=== PATIENT | male | born 1955 | race Caucasian/White ===

== ENCOUNTER 2020-02-16 22:51 | Emergency (ER) | payer MEDICARE, MEDICAID ==
[~2020-02-16] VITALS: Ht 185.4 cm; Wt 104.3 kg
[2020-02-16 23:03] VITALS: BP 122/78
[2020-02-17] MEDS ORDERED: ACCU-CHEK COMFORT CURVE STRIP VI ONE (00:15)
[2020-02-17 01:19] LABS: Basophils # (auto) 0 10 ^3/uL (0-0.2); Basophils % (auto) 0.5 % (0.0-2.0); Eosinophils # (auto) 0.1 10 ^3/uL (0-0.8); Eosinophils % (auto) 0.7 % (0.0-7.0); Hematocrit 42.4 % (41.0-53.0); Hemoglobin 14.3 g/dL (13.5-17.5); Lymphocytes # (auto) 1.6 10 ^3/uL (0.4-5.4); Lymphocytes % (auto) 18.8 % (10.0-50.0); Mean Corpuscular Hemoglobin 31.1 pg (28.0-32.0); Mean Corpuscular Hgb Conc. 33.7 g/dL (32.0-36.0); Mean Corpuscular Volume 92.1 fL (80.0-100.0); Monocytes # (auto) 0.6 10 ^3/uL (0-1.3); Monocytes % (auto) 7.1 % (0.0-12.0); Neutrophils # (auto) 6.1 10 ^3/uL (1.6-8.6); Neutrophils % (auto) 72.9 % (37.0-80.0); Nucleated Red Blood Cells % 0.4 %; Platelet Count (auto) 196 10^3/uL (140-450); Red Cell Distribution Width 14.5 % (11.8-14.3); White Blood Cell 8.4 10^3/uL (4.4-10.8)
[2020-02-17 01:34] LABS: INR 1.05 (0.9-1.15); Partial Thromboplastin Time 23.6 sec (23.64-32.05)
[2020-02-17 01:35] LABS: Albumin 3.7 g/dL (3.4-5.0); Anion Gap 8 (5-15); Blood Urea Nitrogen 24 mg/dL (7-18); Calcium 9.5 mg/dL (8.5-10.1); Carbon Dioxide 27 mmol/L (21-32); Chloride 103 mmol/L (98-107); Glucose 138 mg/dL (74-106); Potassium 4.4 mmol/L (3.5-5.1); Sodium 138 mmol/L (136-145)
[2020-02-17 01:37] LABS: BUN/Creatinine Ratio 16.9; GFR African American 65 mL/min; GFR Non-African American 54 mL/min
[2020-02-17 01:42] LABS: Alanine Aminotransferase 52 U/L (16-61); Alkaline Phosphatase 59 U/L (45-117); Aspartate Aminotransferase 47 U/L (15-37); Bilirubin, Total 0.3 mg/dL (0.2-1.0); Total Protein 7.9 g/dL (6.4-8.2)
[2020-02-17] MEDS ORDERED: traMADol HCL 50 MG TAB PO ONE (01:45)
[2020-02-17 02:08] LABS: Urine Amorphous Crystal FEW /hpf (None Seen); Urine Bacteria FEW /hpf (None Seen); Urine Blood 3+ /uL (Negative); Urine Hyaline Cast FEW /lpf (0 - 2); Urine Mucus FEW (None Seen); Urine WBC 3 /hpf (0 - 3)
[2020-02-17 02:19] LABS: Alcohol, Urine < 3.0 mg/dL (0-5); Amphetamine Screen, Urine NEGATIVE (NEGATIVE); Barbiturate Scree,Urine NEGATIVE (NEGATIVE); Benzodiazephine Screen, Urine POSITIVE (NEGATIVE); Cannabinoid Screen, Urine NEGATIVE (NEGATIVE); Cocaine Screen, Urine NEGATIVE (NEGATIVE); Opiate Scree,Urine NEGATIVE (NEGATIVE); Phencyclidine Screen, Urine NEGATIVE (NEGATIVE)
== END 2020-02-17 03:01 | disposition home or self-care (01) ==
LOC: EDUNIT# 22:51 → EDBD 22:51 → ER 22:54
DX: R07.89 Other chest pain (principal); M48.061 Spinal stenosis, lumbar region without neurogenic claudication; N12 Tubulo-interstitial nephritis, not specified as acute or chronic; N20.0 Calculus of kidney; E11.9 Type 2 diabetes mellitus without complications; E78.5 Hyperlipidemia, unspecified; I10 Essential (primary) hypertension; Z90.49 Acquired absence of other specified parts of digestive tract; Z86.73 Personal history of transient ischemic attack (TIA), and cerebral infarction without residual deficits
CPT/HCPCS: 36415; 70450; 71046; 72131; 80053; 80307; 81001; 82962; 83880; 84443; 84484; 85025; 85610; 85730; 93005

== ENCOUNTER 2020-03-15 21:42 | Inpatient (IN) | payer OTHER, MEDICAID ==
[~2020-03-15] VITALS: Ht 188 cm; Wt 139.7 kg
[2020-03-15 22:52] LABS: Eosinophils # (auto) 0.2 10 ^3/uL (0-0.8); Monocytes # (auto) 0.5 10 ^3/uL (0-1.3); Monocytes % (auto) 7.6 % (0.0-12.0); Nucleated Red Blood Cells % 0.1 %; Platelet Count (auto) 194 10^3/uL (140-450); White Blood Cell 7.1 10^3/uL (4.4-10.8)
[2020-03-15 22:55] LABS: Basophils # (auto) 0 10 ^3/uL (0-0.2); Basophils % (auto) 0.5 % (0.0-2.0); Eosinophils % (auto) 2.4 % (0.0-7.0); Hematocrit 43.1 % (41.0-53.0); Hemoglobin 14.6 g/dL (13.5-17.5); Lymphocytes # (auto) 1.4 10 ^3/uL (0.4-5.4); Lymphocytes % (auto) 20.5 % (10.0-50.0); Mean Corpuscular Hgb Conc. 33.8 g/dL (32.0-36.0); Mean Corpuscular Volume 91.7 fL (80.0-100.0); Neutrophils # (auto) 4.9 10 ^3/uL (1.6-8.6); Red Cell Distribution Width 14.8 % (11.8-14.3)
[2020-03-15 23:03] LABS: Alanine Aminotransferase 65 U/L (16-61); Albumin 3.4 g/dL (3.4-5.0); Anion Gap 7 (5-15); Aspartate Aminotransferase 58 U/L (15-37); Blood Urea Nitrogen 27 mg/dL (7-18); Calcium 9.1 mg/dL (8.5-10.1); Carbon Dioxide 26 mmol/L (21-32); Chloride 107 mmol/L (98-107); GFR African American 61 mL/min; GFR Non-African American 50 mL/min; Glucose 171 mg/dL (74-106); Potassium 3.8 mmol/L (3.5-5.1); Sodium 140 mmol/L (136-145)
[2020-03-15 23:07] LABS: Lactic Acid w/Reflex 2.5 mmol/L (0.4-2.0)
[2020-03-15 23:08] LABS: Alkaline Phosphatase 63 U/L (45-117); Bilirubin, Total 0.4 mg/dL (0.2-1.0); Total Protein 7.5 g/dL (6.4-8.2)
[2020-03-15 23:26] LABS: INR 1.04 (0.9-1.15); Partial Thromboplastin Time 20.7 sec (23.64-32.05)
[2020-03-15] MEDS ORDERED: SODIUM CHLORIDE 0.9% 1,000 ML IV ONE (23:30)
[2020-03-16] MEDS ORDERED: SODIUM CHLORIDE 0.9% 1,000 ML IV ONE ×2 (00:15→05:15)
[2020-03-16] MEDS ORDERED: VANCOMYCIN 1GM/250ML 250 ML IV ONE (00:30)
[2020-03-16] MEDS ORDERED: levoFLOXacin 250MG 50 ML IV ONE (00:30)
[2020-03-16 02:43] LABS: Urine Bacteria NONE SEEN /hpf (None Seen); Urine Blood Negative /uL (Negative); Urine Mucus FEW (None Seen); Urine Specific Gravity 1.029 (1.001-1.035); Urine WBC 1 /hpf (0 - 3)
[2020-03-16 03:07] LABS: Amphetamine Screen, Urine NEGATIVE (NEGATIVE); Barbiturate Scree,Urine NEGATIVE (NEGATIVE); Benzodiazephine Screen, Urine NEGATIVE (NEGATIVE); Cannabinoid Screen, Urine NEGATIVE (NEGATIVE); Cocaine Screen, Urine NEGATIVE (NEGATIVE); Opiate Scree,Urine NEGATIVE (NEGATIVE); Phencyclidine Screen, Urine NEGATIVE (NEGATIVE)
[2020-03-16] MEDS ORDERED: SODIUM CHLORIDE 0.9% 1,000 ML IV SCH (05:57)
[2020-03-16] MEDS ORDERED: DOCUSATE SOD 100 MG CAP PO PRN (06:00)
[2020-03-16] MEDS ORDERED: NITROGLYCERIN 0.4 MG SL TAB SL PRN (06:00)
[2020-03-16] MEDS ORDERED: ONDANSETRON HCL 4 MG/2 ML VIAL IV PRN (06:00)
[2020-03-16] MEDS ORDERED: HYDROcodone-ACET 5/325MG TAB PO PRN (06:00)
[2020-03-16] MEDS ORDERED: ACETAMINOPHEN 325 MG TAB PO PRN (06:00)
[2020-03-16] MEDS ORDERED: DEXTROSE (50%) 50ML SYRG IV PRN ×3 (06:00→13:45)
[2020-03-16 06:35] LABS: Basophils # (auto) 0.1 10 ^3/uL (0-0.2); Basophils % (auto) 0.9 % (0.0-2.0); Eosinophils # (auto) 0.2 10 ^3/uL (0-0.8); Eosinophils % (auto) 2.9 % (0.0-7.0); Hematocrit 38.9 % (41.0-53.0); Lymphocytes # (auto) 2.1 10 ^3/uL (0.4-5.4); Lymphocytes % (auto) 34.9 % (10.0-50.0); Mean Corpuscular Hemoglobin 30.8 pg (28.0-32.0); Mean Corpuscular Hgb Conc. 33.5 g/dL (32.0-36.0); Mean Corpuscular Volume 91.9 fL (80.0-100.0); Monocytes # (auto) 0.5 10 ^3/uL (0-1.3); Neutrophils # (auto) 3.2 10 ^3/uL (1.6-8.6); Neutrophils % (auto) 52.3 % (37.0-80.0); Nucleated Red Blood Cells % 0.2 %; Platelet Count (auto) 162 10^3/uL (140-450); Red Blood Cells 4.23 10^6/uL (4.5-5.90); Red Cell Distribution Width 14.6 % (11.8-14.3); White Blood Cell 6.1 10^3/uL (4.4-10.8)
[2020-03-16 06:56] LABS: Calcium 8.3 mg/dL (8.5-10.1); Potassium 3.8 mmol/L (3.5-5.1)
[2020-03-16 07:00] LABS: BUN/Creatinine Ratio 19.8
[2020-03-16] MEDS: InsuLIN REG 1unit/0.01ml Soln (100units/ml) SC SCH ×4 (08:32→21:56)
[2020-03-16] MEDS: ACCU-CHEK COMFORT CURVE STRIP VI SCH ×4 (08:32→21:56)
[2020-03-16 09:00] VITALS: BP 121/80
[2020-03-16] MEDS ORDERED: levoFLOXacin 500MG 100 ML IV SCH (10:00)
[2020-03-16 12:46] VITALS: BP 138/83
[2020-03-16] MEDS ORDERED: ASPirin-EC 81 mg tab PO ONE (13:45)
[2020-03-16] MEDS ORDERED: LORazepam 2MG/ML-1ML VIAL IV ONE (13:45)
[2020-03-16] MEDS: SODIUM CHLORIDE 0.9% 1,000 ML IV SCH (13:45)
[2020-03-16] MEDS ORDERED: TAMS1CAP25 PO (13:52)
[2020-03-16] MEDS ORDERED: METF-370 PO (13:52)
[2020-03-16] MEDS ORDERED: MULTCHW OR (13:52)
[2020-03-16] MEDS ORDERED: ATOR40TA52 PO (13:52)
[2020-03-16] MEDS ORDERED: SERT-274 PO (13:52)
[2020-03-16] MEDS ORDERED: ALLO300T2 PO (13:52)
[2020-03-16] MEDS ORDERED: GABA300C10 PO (13:52)
[2020-03-16] MEDS ORDERED: ASPI325T4 PO (13:52)
[2020-03-16] MEDS ORDERED: METO25TA93 PO (13:52)
[2020-03-16] MEDS ORDERED: BUPR100T14 PO (13:53)
[2020-03-16] MEDS ORDERED: CLOP75TA41 PO (13:54)
[2020-03-16] MEDS ORDERED: DIVA125C8 PO (13:54)
[2020-03-16] MEDS ORDERED: IOHEXOL 350 MG/ML 100ML IJ ONE (13:59)
[2020-03-16] MEDS ORDERED: IODIXANOL 320MG/ML 100ML BTL IV ONE (14:53)
[2020-03-16 17:00] VITALS: BP 129/74
[2020-03-16] MEDS ORDERED: InsuLIN REG 1unit/0.01ml Soln (100units/ml) SC SCH ×2 (17:00→22:00)
[2020-03-16] MEDS ORDERED: ACCU-CHEK COMFORT CURVE STRIP VI SCH (17:00)
[2020-03-16 17:50] LABS: Cholesterol 145 mg/dL (< 200)
[2020-03-16 17:52] LABS: HDL Cholesterol 34 mg/dL (40-59); LDL Cholesterol 87 mg/dL (< 100); Triglycerides 147 mg/dL (< 150)
[2020-03-16 18:42] LABS: Folate (Folic Acid) 16.43 ng/mL (5.38-24)
[2020-03-16 19:50] VITALS: BP 129/74
[2020-03-16] MEDS: ATORVASTATIN 20 MG TAB PO SCH (21:53)
[2020-03-16 22:00] VITALS: BP 108/57
[2020-03-16] MEDS: traMADol HCL 50 MG TAB PO PRN (23:16)
[2020-03-17 05:00] VITALS: BP 120/93
[2020-03-17] MEDS: InsuLIN REG 1unit/0.01ml Soln (100units/ml) SC SCH ×4 (07:00→22:00)
[2020-03-17] MEDS: ACCU-CHEK COMFORT CURVE STRIP VI SCH ×4 (07:01→22:01)
[2020-03-17 07:10] LABS: Basophils # (auto) 0 10 ^3/uL (0-0.2); Basophils % (auto) 0.7 % (0.0-2.0); Eosinophils # (auto) 0.2 10 ^3/uL (0-0.8); Eosinophils % (auto) 3.5 % (0.0-7.0); Hematocrit 38.7 % (41.0-53.0); Hemoglobin 13.2 g/dL (13.5-17.5); Lymphocytes # (auto) 2.1 10 ^3/uL (0.4-5.4); Lymphocytes % (auto) 35.3 % (10.0-50.0); Mean Corpuscular Hemoglobin 31.2 pg (28.0-32.0); Mean Corpuscular Hgb Conc. 34.2 g/dL (32.0-36.0); Mean Corpuscular Volume 91.2 fL (80.0-100.0); Monocytes # (auto) 0.5 10 ^3/uL (0-1.3); Monocytes % (auto) 8.1 % (0.0-12.0); Neutrophils # (auto) 3.1 10 ^3/uL (1.6-8.6); Neutrophils % (auto) 52.4 % (37.0-80.0); Nucleated Red Blood Cells % 0.2 %; Platelet Count (auto) 154 10^3/uL (140-450); Red Blood Cells 4.24 10^6/uL (4.5-5.90); Red Cell Distribution Width 14.5 % (11.8-14.3); White Blood Cell 5.9 10^3/uL (4.4-10.8)
[2020-03-17 07:37] LABS: Potassium 3.4 mmol/L (3.5-5.1)
[2020-03-17 07:48] LABS: Albumin 3.2 g/dL (3.4-5.0); BUN/Creatinine Ratio 17.1; Bilirubin, Total 0.4 mg/dL (0.2-1.0); Calcium 8.5 mg/dL (8.5-10.1); Total Protein 6.8 g/dL (6.4-8.2)
[2020-03-17] MEDS: SODIUM CHLORIDE 0.9% 1,000 ML IV SCH (08:03)
[2020-03-17 09:00] VITALS: BP 146/85
[2020-03-17] MEDS ORDERED: ASPirin-EC 81 mg tab PO SCH (10:00)
[2020-03-17 13:00] VITALS: BP 130/86
[2020-03-17 17:00] VITALS: BP 125/67
[2020-03-17] MEDS: traMADol HCL 50 MG TAB PO PRN (17:08)
[2020-03-17 22:00] VITALS: BP 143/79
[2020-03-17] MEDS: ATORVASTATIN 20 MG TAB PO SCH (22:01)
[2020-03-18] MEDS: traMADol HCL 50 MG TAB PO PRN (03:04)
[2020-03-18 05:00] VITALS: BP 130/83
[2020-03-18] MEDS: InsuLIN REG 1unit/0.01ml Soln (100units/ml) SC SCH ×2 (06:20→11:30)
[2020-03-18] MEDS: ACCU-CHEK COMFORT CURVE STRIP VI SCH ×2 (06:21→11:41)
[2020-03-18 09:00] VITALS: BP 150/89
[2020-03-18] MEDS ORDERED: ASPirin 81 mg TAB PO SCH (10:00)
[2020-03-18 13:00] VITALS: BP 148/89
[2020-03-19 10:16] LABS: Hepatitis B Surface Antibody Positive
[2020-03-19 10:52] LABS: Hepatitis A Total Antibody Positive
[2020-03-19 11:28] LABS: Hepatitis B Core Total AB Negative; Hepatitis B Surface Antigen Negative (Negative); Hepatitis C Antibody Negative (Negative)
== END 2020-03-18 15:32 | disposition home or self-care (01) | DRG 551 ==
LOC: ER 21:42 → EDBD 21:42 → TELE 21:43 → TELE-EAST 03-16 08:53
PROVIDERS: ADMIT Hospitalist; ATTEND Internal Medicine
DX: M48.00 Spinal stenosis, site unspecified (principal); N17.0 Acute kidney failure with tubular necrosis; I13.0 Hypertensive heart and chronic kidney disease with heart failure and stage 1 through stage 4 chronic kidney disease, or unspecified chronic kidney disease; E11.65 Type 2 diabetes mellitus with hyperglycemia; E11.42 Type 2 diabetes mellitus with diabetic polyneuropathy; E66.9 Obesity, unspecified; G89.29 Other chronic pain; N18.2 Chronic kidney disease, stage 2 (mild); I48.0 Paroxysmal atrial fibrillation; R55 Syncope and collapse; M17.12 Unilateral primary osteoarthritis, left knee; I50.9 Heart failure, unspecified; E11.22 Type 2 diabetes mellitus with diabetic chronic kidney disease; F41.9 Anxiety disorder, unspecified; F32.9 Major depressive disorder, single episode, unspecified; E78.5 Hyperlipidemia, unspecified; R29.6 Repeated falls; Z79.82 Long term (current) use of aspirin; Z79.899 Other long term (current) drug therapy; Z79.02 Long term (current) use of antithrombotics/antiplatelets; Z82.5 Family history of asthma and other chronic lower respiratory diseases; Z86.73 Personal history of transient ischemic attack (TIA), and cerebral infarction without residual deficits; Z90.49 Acquired absence of other specified parts of digestive tract; Z82.49 Family history of ischemic heart disease and other diseases of the circulatory system; Z68.39 Body mass index [BMI] 39.0-39.9, adult
CPT/HCPCS: 36415; 70450; 71045; 71275; 73562; 74176; 76705; 78582; 80048; 80053; 80061; 80307; 80320; 81001; 82140; 82607; 82746; 82962; 83036; 83605; 83735; 83880; 84443; 84484; 85025; 85379; 85610; 85730; 86704; 86706; 86708; 86803; 87040; 87081; 87086; 87340; 93005; 93306; 94660; 95819; 96361; 96365; 96366; 96367; G0378; J1956; Q9967

== ENCOUNTER 2020-08-05 23:20 | Emergency (ER) | payer OTHER, MEDICAID ==
[~2020-08-05] VITALS: Ht 182.9 cm; Wt 108.9 kg
[~2020-08-05 23:20] MED LIST: ALLO300T2 PO; ASPI325T4 PO; ATOR40TA52 PO; BUPR100T14 PO; CLOP75TA41 PO; DIVA125C8 PO; GABA300C10 PO; METF-370 PO; METO25TA93 PO; MULTCHW OR; SERT-274 PO; TAMS1CAP25 PO
[2020-08-06 00:10] LABS: Basophils # (auto) 0.1 10 ^3/uL (0-0.2); Basophils % (auto) 0.7 % (0.0-2.0); Eosinophils # (auto) 0.1 10 ^3/uL (0-0.8); Eosinophils % (auto) 1.5 % (0.0-7.0); Hematocrit 42.6 % (41.0-53.0); Lymphocytes # (auto) 1.3 10 ^3/uL (0.4-5.4); Lymphocytes % (auto) 16.3 % (10.0-50.0); Mean Corpuscular Hemoglobin 31.8 pg (28.0-32.0); Mean Corpuscular Hgb Conc. 35.2 g/dL (32.0-36.0); Mean Corpuscular Volume 90.3 fL (80.0-100.0); Monocytes # (auto) 0.4 10 ^3/uL (0-1.3); Monocytes % (auto) 4.6 % (0.0-12.0); Neutrophils # (auto) 6.2 10 ^3/uL (1.6-8.6); Neutrophils % (auto) 76.9 % (37.0-80.0); Nucleated Red Blood Cells % 0.2 %; Platelet Count (auto) 181 10^3/uL (140-450); Red Blood Cells 4.71 10^6/uL (4.5-5.90); White Blood Cell 8.1 10^3/uL (4.4-10.8)
[2020-08-06 00:25] LABS: INR 1.03 (0.9-1.15); Partial Thromboplastin Time 21.4 sec (23.0-31.2)
[2020-08-06 00:29] LABS: Albumin 3.6 g/dL (3.4-5.0); Anion Gap 7 (5-15); BUN/Creatinine Ratio 16.5; Blood Urea Nitrogen 23 mg/dL (7-18); Calcium 9.5 mg/dL (8.5-10.1); Carbon Dioxide 28 mmol/L (21-32); Chloride 104 mmol/L (98-107); GFR African American 66 mL/min; GFR Non-African American 55 mL/min; Glucose 212 mg/dL (74-106); Sodium 139 mmol/L (136-145)
[2020-08-06 00:34] LABS: Alanine Aminotransferase 69 U/L (16-61); Alkaline Phosphatase 60 U/L (45-117); Aspartate Aminotransferase 56 U/L (15-37); Bilirubin, Total 0.4 mg/dL (0.2-1.0); Total Protein 7.4 g/dL (6.4-8.2)
[2020-08-06 02:00] VITALS: BP 129/85
[2020-08-06] MEDS ORDERED: MORPHINE SULFATE 4 MG/ML SYR/VIAL IV ONE (02:30)
== END 2020-08-06 04:40 | disposition home or self-care (01) ==
LOC: EDBD 23:20 → ER 23:25
DX: S62.111A Displaced fracture of triquetrum [cuneiform] bone, right wrist, initial encounter for closed fracture (principal); S22.31XA Fracture of one rib, right side, initial encounter for closed fracture; S16.1XXA Strain of muscle, fascia and tendon at neck level, initial encounter; S20.211A Contusion of right front wall of thorax, initial encounter; S00.03XA Contusion of scalp, initial encounter; E11.9 Type 2 diabetes mellitus without complications; E78.5 Hyperlipidemia, unspecified; I10 Essential (primary) hypertension; Z86.73 Personal history of transient ischemic attack (TIA), and cerebral infarction without residual deficits; Z79.899 Other long term (current) drug therapy; Z88.0 Allergy status to penicillin; Z88.5 Allergy status to narcotic agent; W18.09XA Striking against other object with subsequent fall, initial encounter; Y93.89 Activity, other specified; Y92.89 Other specified places as the place of occurrence of the external cause; Y99.8 Other external cause status
CPT/HCPCS: 29125; 36415; 70450; 70486; 71250; 72125; 73100; 74176; 80053; 84484; 85025; 85610; 85730; 93005; 96374; 99285; J2270

== ENCOUNTER 2020-08-27 09:11 | Inpatient (IN) | payer OTHER, MEDICAID ==
[~2020-08-27] VITALS: Ht 188 cm; Wt 132.1 kg
[2020-08-27 10:16] LABS: Basophils # (auto) 0 10 ^3/uL (0-0.2); Basophils % (auto) 0.6 % (0.0-2.0); Eosinophils # (auto) 0.2 10 ^3/uL (0-0.8); Eosinophils % (auto) 2.1 % (0.0-7.0); Hematocrit 41.1 % (41.0-53.0); Lymphocytes # (auto) 1.9 10 ^3/uL (0.4-5.4); Lymphocytes % (auto) 23.5 % (10.0-50.0); Mean Corpuscular Hemoglobin 31.3 pg (28.0-32.0); Mean Corpuscular Hgb Conc. 34.2 g/dL (32.0-36.0); Mean Corpuscular Volume 91.5 fL (80.0-100.0); Monocytes # (auto) 0.6 10 ^3/uL (0-1.3); Monocytes % (auto) 7.2 % (0.0-12.0); Neutrophils # (auto) 5.3 10 ^3/uL (1.6-8.6); Neutrophils % (auto) 66.6 % (37.0-80.0); Nucleated Red Blood Cells % 0.1 %; Platelet Count (auto) 208 10^3/uL (140-450); Red Blood Cells 4.49 10^6/uL (4.5-5.90); Red Cell Distribution Width 14.9 % (11.8-14.3)
[2020-08-27 10:19] LABS: Chloride 107 mmol/L (98-107); Potassium 4.1 mmol/L (3.5-5.1); Sodium 141 mmol/L (136-145)
[2020-08-27 10:28] LABS: Alanine Aminotransferase 72 U/L (16-61); Albumin 3.6 g/dL (3.4-5.0); Alkaline Phosphatase 109 U/L (45-117); Anion Gap 7 (5-15); Aspartate Aminotransferase 58 U/L (15-37); BUN/Creatinine Ratio 14.9; Bilirubin, Total 0.4 mg/dL (0.2-1.0); Blood Alcohol < 3.0 mg/dL (0-5); Blood Urea Nitrogen 24 mg/dL (7-18); Calcium 9.5 mg/dL (8.5-10.1); Carbon Dioxide 27 mmol/L (21-32); GFR African American 56 mL/min; GFR Non-African American 46 mL/min; Glucose 190 mg/dL (74-106); Total Protein 7.5 g/dL (6.4-8.2)
[2020-08-27] MEDS ORDERED: SODIUM CHLORIDE 0.9% 500 ML IV ONE (10:45)
[2020-08-27] MEDS ORDERED: DEXTROSE (50%) 50ML SYRG IV PRN (16:15)
[2020-08-27] MEDS ORDERED: MORPHINE SULF INJ 2 MG/ML SYRINGE 1ML IV PRN (16:15)
[2020-08-27] MEDS ORDERED: NITROGLYCERIN 0.4 MG SL TAB SL PRN (16:15)
[2020-08-27] MEDS: ACCU-CHEK COMFORT CURVE STRIP VI SCH ×2 (17:22→21:38)
[2020-08-27 17:26] LABS: Urine Bacteria NONE SEEN /hpf (None Seen); Urine Blood Negative /uL (Negative); Urine Mucus FEW (None Seen); Urine Specific Gravity 1.026 (1.001-1.035); Urine WBC 1 /hpf (0 - 3)
[2020-08-27] MEDS: InsuLIN REG 1unit/0.01ml Soln (100units/ml) SC SCH ×2 (17:32→21:37)
[2020-08-27] MEDS: TAMSULOSIN HYDROCHLORIDE 0.4 MG CAP PO SCH (18:43)
[2020-08-27] MEDS: traMADol HCL 50 MG TAB PO PRN (19:03)
[2020-08-27 19:49] VITALS: BP 125/71
[2020-08-27] MEDS ORDERED: GABAPENTIN 300 MG CAP PO SCH (22:00)
[2020-08-27] MEDS ORDERED: ATORVASTATIN 20 MG TAB PO SCH (22:00)
[2020-08-27] MEDS ORDERED: buPROPion HCL 100 MG TAB PO SCH (22:00)
[2020-08-28 05:00] VITALS: BP 119/79
[2020-08-28] MEDS: InsuLIN REG 1unit/0.01ml Soln (100units/ml) SC SCH ×3 (06:27→17:57)
[2020-08-28] MEDS: ACCU-CHEK COMFORT CURVE STRIP VI SCH ×3 (06:27→17:57)
[2020-08-28 07:38] LABS: Basophils # (auto) 0 10 ^3/uL (0-0.2); Basophils % (auto) 0.8 % (0.0-2.0); Eosinophils # (auto) 0.2 10 ^3/uL (0-0.8); Eosinophils % (auto) 3.5 % (0.0-7.0); Hemoglobin 13.1 g/dL (13.5-17.5); Lymphocytes # (auto) 2.2 10 ^3/uL (0.4-5.4); Lymphocytes % (auto) 36.7 % (10.0-50.0); Mean Corpuscular Hgb Conc. 33.7 g/dL (32.0-36.0); Monocytes # (auto) 0.5 10 ^3/uL (0-1.3); Monocytes % (auto) 7.8 % (0.0-12.0); Neutrophils % (auto) 51.2 % (37.0-80.0); Nucleated Red Blood Cells % 0.2 %; Platelet Count (auto) 173 10^3/uL (140-450); Red Blood Cells 4.24 10^6/uL (4.5-5.90); Red Cell Distribution Width 14.8 % (11.8-14.3); White Blood Cell 5.9 10^3/uL (4.4-10.8)
[2020-08-28 07:58] LABS: Potassium 3.7 mmol/L (3.5-5.1)
[2020-08-28 08:05] LABS: Albumin 3.2 g/dL (3.4-5.0); Bilirubin, Total 0.3 mg/dL (0.2-1.0); Calcium 8.9 mg/dL (8.5-10.1); Total Protein 6.7 g/dL (6.4-8.2)
[2020-08-28 08:30] VITALS: BP 123/68
[2020-08-28 09:00] VITALS: BP 123/68
[2020-08-28] MEDS ORDERED: SERTRALINE HCL 50 MG TAB PO SCH (10:00)
[2020-08-28] MEDS ORDERED: ALLOPURINOL 300 MG TAB PO SCH (10:00)
[2020-08-28] MEDS ORDERED: ASPirin 81 mg TAB PO SCH (10:00)
[2020-08-28] MEDS ORDERED: METOPROLOL SUCCINATE XL 50 MG TAB PO SCH (10:00)
[2020-08-28] MEDS ORDERED: CLOPIDOGREL BISULFATE 75 MG TAB PO SCH (10:00)
[2020-08-28 13:00] VITALS: BP 121/71
[2020-08-28] MEDS: traMADol HCL 50 MG TAB PO PRN (15:31)
[2020-08-28 17:00] VITALS: BP 127/82
[2020-08-28 17:05] VITALS: BP 121/71
[2020-08-28] MEDS: TAMSULOSIN HYDROCHLORIDE 0.4 MG CAP PO SCH (18:05)
== END 2020-08-28 19:05 | disposition home or self-care (01) | DRG 551 ==
LOC: EDBD 09:11 → ER 09:11 → OVERFLOW 09:12 → WEST WING 19:42
PROVIDERS: ADMIT Nurse Practitioner Acute Care; ATTEND Internal Medicine
DX: M48.061 Spinal stenosis, lumbar region without neurogenic claudication (principal); N17.0 Acute kidney failure with tubular necrosis; M17.0 Bilateral primary osteoarthritis of knee; M54.18 Radiculopathy, sacral and sacrococcygeal region; E11.22 Type 2 diabetes mellitus with diabetic chronic kidney disease; E11.65 Type 2 diabetes mellitus with hyperglycemia; E66.9 Obesity, unspecified; E78.5 Hyperlipidemia, unspecified; E86.0 Dehydration; I12.9 Hypertensive chronic kidney disease with stage 1 through stage 4 chronic kidney disease, or unspecified chronic kidney disease; G62.9 Polyneuropathy, unspecified; G89.29 Other chronic pain; H81.10 Benign paroxysmal vertigo, unspecified ear; M10.9 Gout, unspecified; N40.0 Benign prostatic hyperplasia without lower urinary tract symptoms; R29.6 Repeated falls; S39.012A Strain of muscle, fascia and tendon of lower back, initial encounter; F32.9 Major depressive disorder, single episode, unspecified; N18.30 Chronic kidney disease, stage 3 unspecified; F41.9 Anxiety disorder, unspecified; W18.39XA Other fall on same level, initial encounter; Z86.73 Personal history of transient ischemic attack (TIA), and cerebral infarction without residual deficits; I25.2 Old myocardial infarction; Y93.89 Activity, other specified; Y92.89 Other specified places as the place of occurrence of the external cause; Y99.8 Other external cause status; Z79.02 Long term (current) use of antithrombotics/antiplatelets; Z79.82 Long term (current) use of aspirin; Z79.84 Long term (current) use of oral hypoglycemic drugs; Z82.49 Family history of ischemic heart disease and other diseases of the circulatory system; Z82.5 Family history of asthma and other chronic lower respiratory diseases; Z88.5 Allergy status to narcotic agent; Z88.0 Allergy status to penicillin; Z68.37 Body mass index [BMI] 37.0-37.9, adult
CPT/HCPCS: 36415; 70450; 72131; 80053; 80164; 80320; 81001; 82962; 83036; 84484; 85025; 87081; G0378; J1815

== ENCOUNTER → 2023-10-30 | Outpatient (CLI) | payer OTHER, MEDICAID ==
[~2023-10-30] MED LIST changes: -ATOR40TA52 PO; +BUPR-346 PO; -BUPR100T14 PO; -CLOP75TA41 PO; +GABA-1250 PO; -GABA300C10 PO; +SERT-206 PO; -SERT-274 PO
[2023-10-30 15:21] LABS: Urine Bacteria NONE SEEN /hpf (None Seen); Urine Blood TRACE /uL (Negative); Urine Clarity Clear (Clear); Urine Color Yellow (Yellow); Urine Protein, UAD Negative (Negative); Urine Specific Gravity 1.037 (1.001-1.035); Urine Urobilinogen Normal (Negative); Urine WBC <1 /hpf (0 - 3); Urine pH 5.5 (5.0-8.0)
== END | disposition home or self-care (01) ==
LOC: LAB 08:10
PROVIDERS: ATTEND Urology
DX: R30.0 Dysuria (principal)
CPT/HCPCS: 81001; 87086

== ENCOUNTER 2025-01-17 17:29 | Inpatient (IN) | payer OTHER, MEDICAID ==
[~2025-01-17] VITALS: Ht 182.9 cm; Wt 118.8 kg
[~2025-01-17 17:29] MED LIST changes: -ASPI325T4 PO; +ASPI325T6 PO
--- NOTE | 2025-01-17 17:44 | ED.PDOC ---
History of present illness HPI Comments 69 year old male presents to the ED with chief complaint of hyperglycemia. Patient reports that he had visited his PCP's office today for a scheduled appointment and was told his blood glucose was in the 600s, advised to come to the ED for further evaluation. Patient relays that he has been experiencing some body aches with associated SOB, increased thirst, and increased urination. Patient's BG during triage was noted to be 369. Patient denies any chest pain, dizziness, N/V/D, abdominal pain, sweats, or shakiness. Time Seen by MD: 17:40 Primary Care Provider: UNKNOWN History of present illness: Nurses Notes, Medications, Allergies Allergies: Coded Allergies: Codeine (Verified Allergy, Unknown, 02/17/16) Pantoprazole (Verified Allergy, Unknown, 01/17/25) Penicillins (Verified Allergy, Unknown, 02/17/16) Uncoded Allergies: CHICKEN (Allergy, Severe, 02/17/16) Home Meds Reported Medications Divalproex Sodium (Divalproex Sodium) 125 Mg Cap, 125 MG PO HS, CAP 03/16/20 Bupropion Hcl (Bupropion Hcl) 100 Mg Tab, 150 MG PO HS for 30 Days, MG 03/16/20 Aspirin (Aspirin) 325 Mg Tab, 81 MG PO DAILY for 30 Days, MG 03/16/20 Gabapentin (Gabapentin) 300 Mg Cap, 1 CAP PO HS, #90 CAP 5 Refills 03/16/20 Metoprolol Succinate (Metoprolol Succinate Er) 25 Mg Tab, 100 MG PO DAILY for 30 Days, MG 03/16/20 Multiple Vitamins W/ Minerals (Centrum Silver) Silver Chw, 1 OR, TAB.CHEW 03/16/20 Allopurinol (Allopurinol) 300 Mg Tab, 300 MG PO DAILY for 30 Days, MG 03/16/20 Metformin Hydrochloride (Metformin Hcl) 500 Mg Tab, 500 MG PO DAILY for 30 Days, MG 03/16/20 Sertraline Hcl (Sertraline Hcl) 50 Mg Tab, 100 MG PO DAILY for 30 Days, MG 03/16/20 Tamsulosin HCl (Tamsulosin Hydrochloride) 0.4 Mg Cap, 0.4 MG PO DAILY, CAP 03/16/20 Information Source: Patient Mode of Arrival: Ambulatory Timing: Hours Duration: Since onset Prehospital treatment: Accucheck [place]: Other (achey) History of: Diabetes, Oral hypoglycemic use, Frequent hyperglycemic Associated signs and symptoms: Other (SOB, body aches, increased thirst and increased urination) Past Medical History PAST MEDICAL HISTORY: CAD, Depression, DM, High Lipids, HTN, NE, TIA Past Medical History (Other): Enlarged prostate Surgical History: Appendectomy, Cholecystectomy, PTCA Surgical History (Other): Lower back surgeries, knee surgeries Family History Family History: Reviewed,noncontributory to illness, Family hx of heart patti Social History Smoker: Non-Smoker Alcohol: Denies ETOH Use Drugs: Denies Drug Use Lives In: Home Constitutional: reports: others (Body aches); denies: chills, diaphoresis, fatigue, fever, malaise, sweats, weakness EENTM: denies: blurred vision, double vision, ear bleeding, ear discharge, ear drainage, ear pain, ear ringing, eye pain, eye redness, hearing loss, mouth pain, mouth swelling, nasal discharge, nose bleeding, nose congestion, nose pain, photophobia, tearing, throat pain, throat swelling, voice changes, others Respiratory: reports: shortness of breath; denies: cough, hemoptysis, orthopnea, SOB at rest, SOB with excertion, stridor, wheezing, others Cardiovascular: denies: chest pain, dizzy spells, diaphoresis, Dyspnea on exertion, edema, irregular heart beat, left arm pain, lightheadedness, palpitations, PND, syncope, others Gastrointestinal: denies: abdomen distended, abdominal pain, blood streaked bowels, constipated, diarrhea, dysphagia, difficulty swallowing, hematemesis, melena, nausea, poor appetite, poor fluid intake, rectal bleeding, rectal pain, vomiting, others Genitourinary: denies: burning, dysuria, flank pain, frequency, hematuria, incontinence, penile discharge, penile sore, pain, testicle pain, testicle swelling, urgency, others Neurological: denies: dizziness, fainting, headache, left sided numbness, left sided weakness, numbness, paresthesia, pre-existing deficit, right sided numbness, right sided weakness, seizure, speech problems, tingling, tremors, weakness, others Musculoskeletal: denies: back pain, gout, joint pain, joint swelling, muscle pain, muscle stiffness, neck pain, others Integumetry: denies: bruises, change in color, change in hair/nails, dryness, laceration, lesions, lumps, rash, wounds, others Allergic/Immunocompromised: denies: Difficulty Healing, Frequent Infections, Hives, Itching, others Hematologic/Lymphatic: denies: anemia, blood clots, easy bleeding, easy bruising, swollen glands, others Endocrine: reports: excessive thirst, excessive urination; denies: excessive hunger, excessive sweating, flushing, intolerance to cold, intolerance to heat, unexplained weight gain, unexplained weight loss, others Psychiatric: denies: anxiety, bipolar disorder, depression, hopeless, panic disorder, schizophrenia, sleepless, suicidal, others All Other Systems: Reviewed and Negative Physical Exam General Appearance: Moderate Distress HEENT: Pale Conjuntivae (L), Pale Conjuntivae (R), Pharynx Normal, TMs Normal Neck: Full Range of Motion, Non-Tender, Normal, Normal Inspection Respiratory: Chest Non-Tender, Lungs Clear, No Accessory Muscle Use, No Respiratory Distress, Normal Breath Sounds Cardiovascular: No Edema, No JVD, No Murmur, No Gallop, Normal Peripheral Pulses, Regular Rate/Rhythm Breast Exam: Deferred Gastrointestinal: No Organomegaly, Non Tender, No Pulsatile Mass, Normal Bowel Sounds, Soft Genitalia: Deferred Pelvic: Deferred Rectal: Deferred Extremities: No calf tenderness, Normal capillary refill, Normal inspection, Normal range of motion, Non-tender, No pedal edema Musculoskeletal : Apperance: Normal Neurologic: Alert, wildlife science professor II-XII nml as Tested, Motor Weakness, Normal Affect, Normal Mood, No Sensory Deficits Cerebellar Function: Normal Reflexes: Normal Skin: Dry, Pallor, Warm Lymphatic: No Adenopathy Was a procedure done? Was a procedure done?: No EKG EKG : Pulse Rate (adult): 97 [place]: Normal Cardiac Rhythm: NSR Block: None ST: Nonsp Differential Diagnosis (DM) Differential Diagnosis: DKA, Gastritis, Gastroenteritis, Hyperglycemia, Hyperosmolar State X-Ray, Labs, Meds, VS Vital Signs Date Time Temp Pulse Resp B/P (MAP) Pulse Ox O2 Delivery O2 Flow Rate FiO2 01/17/25 18:27 97 01/17/25 18:05 98.8 96 20 105/67 (80) 93 98.8 01/17/25 18:05 96 20 93 Room Air* 0 21 01/17/25 17:49 97 01/17/25 17:43 97.0 112 18 84/65 (71) 94 Lab Test 01/17/25 17:59 Range/Units White Blood Count 9.9 4.4-10.8 10^3/uL Red Blood Count 5.53 4.5-5.90 10^6/uL Hemoglobin 16.5 13.5-17.5 g/dL Hematocrit 49.1 41.0-53.0 % Mean Corpuscular Volume 88.8 80.0-100.0 fL Mean Corpuscular Hemoglobin 29.9 28.0-32.0 pg Mean Corpuscular Hemoglobin Concent 33.6 32.0-36.0 g/dL Red Cell Distribution Width 14.6 H 11.8-14.3 % Platelet Count 227 140-450 10^3/uL Mean Platelet Volume 8.4 6.9-10.8 fL Neutrophils (%) (Auto) 69.7 37.0-80.0 % Lymphocytes (%) (Auto) 21.4 10.0-50.0 % Monocytes (%) (Auto) 6.6 0.0-12.0 % Eosinophils (%) (Auto) 1.7 0.0-7.0 % Basophils (%) (Auto) 0.6 0.0-2.0 % Neutrophils # (Auto) 6.9 1.6-8.6 10 ^3/uL Lymphocytes # (Auto) 2.1 0.4-5.4 10 ^3/uL Monocytes # (Auto) 0.7 0-1.3 10 ^3/uL Eosinophils # (Auto) 0.2 0-0.8 10 ^3/uL Basophils # (Auto) 0.1 0-0.2 10 ^3/uL Nucleated Red Blood Cells 0.2 % Sodium Level 136 136-145 mmol/L Potassium Level 4.1 3.5-5.1 mmol/L Chloride Level 98 98-107 mmol/L Carbon Dioxide Level 29 20-31 mmol/L Anion Gap 9 5-15 Blood Urea Nitrogen 23 9-23 mg/dL Creatinine 1.59 H 0.700-1.30 mg/dL Glomerular Filtration Rate Calc 47 >90 mL/min BUN/Creatinine Ratio 14.5 10.0-20.0 Serum Glucose 401 *H 74-106 mg/dL Lactic Acid Level 2.9 *H 0.4-2.0 mmol/L Calcium Level 10.3 8.7-10.4 mg/dL Beta-Hydroxybutyric Acid Pending Current Medications Medications (Trade) Dose Ordered Sig/Peter Route Start Time Stop Time Status Last Admin Sodium Chloride 1,000 ml @ 1,000 mls/hr Q1H ONCE IV 01/17/25 17:45 01/17/25 18:44 DC 01/17/25 18:48 IV Hep-Lock was established The patient was given a 1 L bolus of normal saline The lactic acid level is 2.9 The patient was glucose is 401 The patient's anion gap is within normal limits The patient's CO2 level is within normal limits The urine test is pending We are going to give the patient normal saline per sepsis protocol but we do not think that this patient is septic The patient was being admitted at this time Time of 1ST Reevaluation: 18:27 Reevaluation 1ST: Unchanged Patient Education/Counseling: Diagnosis, Treatment, Prognosis Family Education/Counseling: No Family Present Additional Information -Reviewed patient's previous visit(s): 08/09/20 N/V dizziness s/p fall - The following tests were ordered, and results were reviewed by me: CBC, BMP, UA, Lactic Acid, Acetone, Blood culture, EKG, Type and screen, COVID-19 - Additional information was gathered from interviewing the following independent Historian: None - I reviewed and agreed with the following test results read by other provider: None - I discussed treatments and results with medical personnel and: patient Comprehensive systems review obtained and negative except for what is stated in the HPI. Departure 1 Departure Time of Disposition: 19:27 Impression: Primary Impression: Dehydration Additional Impressions: Uncontrolled diabetes mellitus Qualified Codes: E13.65 - Other specified diabetes mellitus with hyperglycemia Elevated lactic acid level Disposition: ADMITTED INPATIENT Admit to: Tele Condition: Fair Critical Care Note Critical Care Time?: No Stability Stability form required: Yes Unstable for transfer: Telemetry monitoring (Telemetry monitoring required), ED Physician Assesment (Clinical assesment) Heart Score Heart Score: Heart Score Response (Comments) Value History N/A 0 EKG N/A 0 Age N/A 0 Risk Factors N/A 0 Troponin N/A 0 Total 0 I personally scribed for BRY NORRIS MD ([email or web address]) on 01/17/25 at 17:44. Electronically submitted by Hollis Rubio ([email or web address]). I personally scribed for BRY NORRIS MD ([email or web address]) on 01/17/25 at 17:45. Electronically submitted by Hollis Rubio ([email or web address]). I personally scribed for BRY NORRIS MD ([email or web address]) on 01/17/25 at 17:46. Electronically submitted by Hollis Rubio ([email or web address]). BRY NORRIS MD Jan 17, 2025 17:44
[2025-01-17 18:05] VITALS: PULSE 96; RESP 20; O2SAT 93
[2025-01-17 18:39] LABS: Basophils # (auto) 0.1 10 ^3/uL (0-0.2); Basophils % (auto) 0.6 % (0.0-2.0); Eosinophils # (auto) 0.2 10 ^3/uL (0-0.8); Eosinophils % (auto) 1.7 % (0.0-7.0); Hematocrit 49.1 % (41.0-53.0); Hemoglobin 16.5 g/dL (13.5-17.5); Lymphocytes # (auto) 2.1 10 ^3/uL (0.4-5.4); Lymphocytes % (auto) 21.4 % (10.0-50.0); Mean Corpuscular Hemoglobin 29.9 pg (28.0-32.0); Mean Corpuscular Hgb Conc. 33.6 g/dL (32.0-36.0); Mean Corpuscular Volume 88.8 fL (80.0-100.0); Monocytes # (auto) 0.7 10 ^3/uL (0-1.3); Monocytes % (auto) 6.6 % (0.0-12.0); Neutrophils # (auto) 6.9 10 ^3/uL (1.6-8.6); Neutrophils % (auto) 69.7 % (37.0-80.0); Nucleated Red Blood Cells % 0.2 %; Platelet Count (auto) 227 10^3/uL (140-450); Red Blood Cells 5.53 10^6/uL (4.5-5.90); Red Cell Distribution Width 14.6 % (11.8-14.3); White Blood Cell 9.9 10^3/uL (4.4-10.8)
[2025-01-17] MEDS: SODIUM CHLORIDE 0.9% 1,000 ML IV ONE ×2 (18:48→21:00)
[2025-01-17 18:54] LABS: Potassium 4.1 mmol/L (3.5-5.1); Sodium 136 mmol/L (136-145)
[2025-01-17 18:55] LABS: Anion Gap 9 (5-15); Calcium 10.3 mg/dL (8.7-10.4); Carbon Dioxide 29 mmol/L (20-31); Chloride 98 mmol/L (98-107)
[2025-01-17 19:00] LABS: BUN/Creatinine Ratio 14.5 (10.0-20.0)
[2025-01-17 19:06] LABS: Blood Urea Nitrogen 23 mg/dL (9-23); Lactic Acid w/Reflex 2.9 mmol/L (0.4-2.0)
[2025-01-17 19:07] LABS: Glucose 401 mg/dL (74-106)
[2025-01-17] MEDS: SODIUM CHLORIDE 0.9% 2,350 ML IV ONE (20:00)
--- NOTE | 2025-01-17 20:51 | DVH ---
CHEST RADIOGRAPH Indication: SOB Technique: Single frontal view of the chest was obtained COMPARISON: CHEST PORTABLE on DOS: 08/09/20 FINDINGS: Lines and Tubes: None Lungs: Lung volumes are low with crowding of the bronchovascular markings. No definite abnormality id entified. Pleura: No effusion. No pneumothorax. Cardiomediastinal contours: Unremarkable Bones: Unremarkable IMPRESSION: Lung volumes are low with crowding of the bronchovascular markings. No definite abnormality identifie dMichele
[2025-01-17] MEDS ORDERED: NITROGLYCERIN 0.4 MG SL TAB SL PRN (21:00)
[2025-01-17 21:18] LABS: Bilirubin, Direct 0.1 mg/dL (<0.3); Bilirubin, Total 0.4 mg/dL (0.2-1.0); Magnesium 2.3 mg/dL (1.6-2.6); Phosphorus 3.6 mg/dL (2.4-5.1); Total Protein 7.7 g/dL (5.7-8.2)
[2025-01-17 21:22] LABS: INR 0.97 (0.9-1.15); Prothrombin Time 10.3 sec (9.3-11.8)
[2025-01-17 21:33] VITALS: PULSE 88; RESP 20; O2SAT 93
--- NOTE | 2025-01-17 21:51 | DVHHPRES ---
History of Present Illness Resident Creating Document: LEEANN SALCIDO RESDIENT History of Present Illness This is a 69-year-old male with past history of diabetes with frequent hypoglycemic episode, coronary artery disease (status post PCI on 01/13/2025) BPH, gout, diabetes, hypertension, depression, and stroke came to the hospital due to hyperglycemia. Per patient he had an appointment with his PCP today morning and was contacted back on 4:00 p.m. due to abnormal lab results (serum glucose more than 600) which prompted this visit. In ER serum glucose was found more than 400 Patient reports tiredness, generalized body pain, thirstiness and polyuria. Patient denies chest pain, shortness of breath, fever, nausea, vomiting, diarrhea, or any recent sick contact. PMHx:coronary artery disease (status post PCI on 01/13/2025) BPH, gout, diabetes, hypertension, depression, and stroke PSHx: Appendectomy, cholecystectomy and PTCA Social history: Lives with a friend at home, Home medication: A low gluten, glimepiride, Jardiance, aspirin, clopidogrel, metoprolol, gabapentin, allopurinol, bupropion, Allergic history: Chicken, codeine, pantoprazole, penicillin Review of Systems Review of Systems General: Reports generalized weakness and fatigue HEENT: No headaches, visiual changes, hearing loss, tinnitus, nasal congestion and discharge, and sore throat. Cardiovascular: Denies chest pain, palpitations, dyspnea on exertion, orthopnea, or claudication. Respiratory: No cough, and wheezing. Gastrointestinal: Denies nausea, vomiting, dysphagia, odynophagia, heartburn, abdominal pain, flatulence, bloating, diarrhea, constipation, change in stool, or blood in stool. Genitourinary: No dysuria, hematuria, discharge, frequency, urgency, nocturia, incontinence, and urinary retention. Endocrine: Reports polydipsia, polyuria, and polyphagia. Neurological: No dizziness, extremity weakness and numbness, tremors, gait disturbance, seizures, and memory impairment. Psychiatric: Denies depression, anxiety,or insomnia. Musculoskeletal: Denies neck pain, stiffness and swelling, back pain, muscle weakness, joint pain, stiffness, swelling, or limited range of motion. Skin: No rashes, itching, skin lesion, changes in hair, nail, skin texture and breast. Hematologic/Lymphatic: Denies easy bruising, bleeding tendencies, or lymph node enlargement. Allergies: Coded Allergies: Codeine (Verified Allergy, Unknown, 02/17/16) Pantoprazole (Verified Allergy, Unknown, 01/17/25) Penicillins (Verified Allergy, Unknown, 02/17/16) Uncoded Allergies: CHICKEN (Allergy, Severe, 02/17/16) Medications Current Medications Medications Dose Ordered Sig/Peter Route Start Time Stop Time Status Last Admin Dose Admin Nitroglycerin 0.4 mg Q5MINP PRN SL 01/17/25 21:00 UNV Clopidogrel Bisulfate 75 mg DAILY PO 01/18/25 10:00 UNV Aspirin 81 mg DAILY PO 01/18/25 10:00 UNV Empaglifozin 10 mg DAILY PO 01/18/25 10:00 UNV Atorvastatin Calcium 80 mg HS PO 01/17/25 22:00 UNV Metoprolol Succinate 100 mg DAILY PO 01/18/25 10:00 UNV Sertraline HCl 100 mg DAILY PO 01/18/25 10:00 UNV Tamsulosin HCl 0.4 mg QPM PO 01/18/25 18:00 UNV Enoxaparin Sodium 40 mg DAILY SC 01/18/25 10:00 UNV Pregabalin 75 mg BID PO 01/17/25 22:00 UNV Exam Vital Signs Vital Signs Date Time Temp Pulse Resp B/P (MAP) Pulse Ox O2 Delivery O2 Flow Rate FiO2 01/17/25 20:00 98.0 93 20 111/73 (86) 96 98.0 01/17/25 18:05 Room Air* 0 21 Exam General Appearance: Alert, Oriented X3, Cooperative, No acute distress HEENT: Atraumatic, PERRLA, EOMI, Mucous membrane moist/pink Respiratory: Clear to auscultation, Normal air movement Cardiovascular: Regular rate, Normal S1, Normal S2, No murmurs, no chest wall tenderness Abdominal: Normal bowel sounds, Soft, No tenderness, No hepatospenomegaly, No masses Extremities: No clubbing, No cyanosis, No edema, Normal pulses, No tendernes s/swelling Skin: No rashes, No breakdown, No significant lesion Neuro: Normal gait, Normal speech, Strength at 5/5 X4 ext, Normal tone, Sensation intact, Cranial nerves 3-12 NL, Reflexes 2+ Psych/Mental Status: Mental status NL, Mood NL Labs/Xrays Labs Test 01/17/25 19:57 01/17/25 19:55 01/17/25 17:59 Range/Units Lactic Acid Level 1.6 0.4-2.0 mmol/L POC Glucose 313 H 70-106 mg/dl White Blood Count 9.9 4.4-10.8 10^3/uL Red Blood Count 5.53 4.5-5.90 10^6/uL Hemoglobin 16.5 13.5-17.5 g/dL Hematocrit 49.1 41.0-53.0 % Mean Corpuscular Volume 88.8 80.0-100.0 fL Mean Corpuscular Hemoglobin 29.9 28.0-32.0 pg Mean Corpuscular Hemoglobin Concent 33.6 32.0-36.0 g/dL Red Cell Distribution Width 14.6 H 11.8-14.3 % Platelet Count 227 140-450 10^3/uL Mean Platelet Volume 8.4 6.9-10.8 fL Neutrophils (%) (Auto) 69.7 37.0-80.0 % Lymphocytes (%) (Auto) 21.4 10.0-50.0 % Monocytes (%) (Auto) 6.6 0.0-12.0 % Eosinophils (%) (Auto) 1.7 0.0-7.0 % Basophils (%) (Auto) 0.6 0.0-2.0 % Neutrophils # (Auto) 6.9 1.6-8.6 10 ^3/uL Lymphocytes # (Auto) 2.1 0.4-5.4 10 ^3/uL Monocytes # (Auto) 0.7 0-1.3 10 ^3/uL Eosinophils # (Auto) 0.2 0-0.8 10 ^3/uL Basophils # (Auto) 0.1 0-0.2 10 ^3/uL Nucleated Red Blood Cells 0.2 % Prothrombin Time 10.3 9.3-11.8 sec Prothrombin Time INR 0.97 0.9-1.15 Activated Partial Thromboplast Time 25.0 24.5-34.5 SEC Sodium Level 136 136-145 mmol/L Potassium Level 4.1 3.5-5.1 mmol/L Chloride Level 98 98-107 mmol/L Carbon Dioxide Level 29 20-31 mmol/L Anion Gap 9 5-15 Blood Urea Nitrogen 23 9-23 mg/dL Creatinine 1.59 H 0.700-1.30 mg/dL Glomerular Filtration Rate Calc 47 >90 mL/min BUN/Creatinine Ratio 14.5 10.0-20.0 Serum Glucose 401 *H 74-106 mg/dL Hemoglobin A1c 12.5 H <5.7 % A1C Serum Osmolality 302 H 278-298 mOsm/kg Calcium Level 10.3 8.7-10.4 mg/dL Phosphorus Level 3.6 2.4-5.1 mg/dL Magnesium Level 2.3 1.6-2.6 mg/dL Total Bilirubin 0.4 0.2-1.0 mg/dL Direct Bilirubin 0.1 <0.3 mg/dL Aspartate Amino Transferase (AST) 16 13-40 U/L Alanine Aminotransferase (ALT) 25 7-40 U/L Alkaline Phosphatase 124 H 46-116 U/L Total Protein 7.7 5.7-8.2 g/dL Albumin 5.0 H 3.2-4.8 g/dL Beta-Hydroxybutyric Acid 0.191 < 0.4 mmol/L Thyroid Stimulating Hormone (TSH) 3.48 0.55-4.78 uIU/mL Assessment/Plan Assessment/Plan Diabetes type 2, with uncontrolled hyperglycemia Uncontrolled diabetes mellitus type 2 Ruled out DKA in [facility] Hb A1c is raised more than 12 Serum glucose is more than 400 IV normal saline Insulin according to aggressive sliding scale NATE, likely due to VMN IV fluid Coronary artery disease, status post PCI Hypertension Anxiety/depression Dyslipidemia History of stroke Gout BPH Continue home meds DIET: Diabetic right DVT PROPHYLAXIS: Lovenox GI PROPHYLAXIS:: Protonix CODE STATUS: Goal of care discussed for more than 18 minutes, full code DISPOSITION: Med/surge Patient's status and paln discussed with the patient. Case discussed with Dr. Parker. Plan discussed with: Patient, Other (RN) My Orders Orders - LEEANN SALCIDO Procedure Category Date Status Time Admit ADMIT 01/17/25 Transmitted 20:53 Nitroglycerin PHA 01/17/25 Logged Sublingual (Ntrostat 21:00 Stat Ekg For Chest LIZ 01/17/25 In Process Pain 20:53 Notify Of Changes LIZ 01/17/25 In Process From Base 20:53 Sodium Chloride 0.9% PHA 01/17/25 Logged 21:00 Clopidogrel Bisulfate PHA 01/18/25 Logged (Plavix) 10:00 Clopidogrel Bisulfate PHA 01/17/25 Logged (Plavix) 21:00 Empagliflozin PHA 01/18/25 Logged (Jardiance) 10:00 Atorvastatin (Lipitor) PHA 01/17/25 Logged 22:00 Metoprolol Xl PHA 01/18/25 Logged Succinate (Toprol Xl) 10:00 Sertraline Hcl PHA 01/18/25 Logged (Zoloft) 10:00 Tamsulosin PHA 01/18/25 Logged Hydrochloride (Flomax) 18:00 Tamsulosin PHA 01/17/25 Logged Hydrochloride (Flomax) 21:00 Enoxaparin Sodium PHA 01/17/25 Logged (Lovenox) 21:00 Enoxaparin Sodium PHA 01/18/25 Logged (Lovenox) 10:00 Pregabalin Capsule PHA 01/17/25 Logged (Lyrica Capsule) 22:00 Aspirin Tablet PHA 01/18/25 Logged 10:00 Aspirin Tablet PHA 01/17/25 Logged 21:00 Date of Service: Jan 18, 2025 Billing Provider: LOTUS PARKER MD Common Visit Codes: [id number] INP/OBS CARE (HIGH) Secondary Visit Codes: 46584-[id number] CARE PLAN 30 MINUTES LEEANN SALCIDO RESDIENT Jan 17, 2025 21:51 LOTUS PARKER MD Jan 18, 2025 17:45
[2025-01-17] MEDS: ENOXAPARIN SOD 40 MG/0.4 ML SYRINGE SC ONE (22:54)
[2025-01-17] MEDS: TAMSULOSIN HYDROCHLORIDE 0.4 MG CAP PO ONE (22:55)
[2025-01-17] MEDS: PREGABALIN CAPSULE 75 MG CAP PO SCH (22:55)
[2025-01-17] MEDS: ATORVASTATIN 20 MG TAB PO SCH (22:55)
[2025-01-17] MEDS: ASPirin 81 mg TAB PO ONE (22:55)
[2025-01-17] MEDS: CLOPIDOGREL BISULFATE 75 MG TAB PO ONE (22:56)
[2025-01-17] MEDS ORDERED: DEXTROSE (50%) 50ML SYRG IV PRN (23:00)
[2025-01-18] VITALS (8 sets, daily range): BP systolic 107–135; BP diastolic 52–85; PULSE 79–89; RESP 12–20; TEMP 97.9–98.2; O2SAT 93–96
[2025-01-18] MEDS: ACCU-CHEK COMFORT CURVE STRIP VI SCH ×2 (00:22→11:33)
[2025-01-18] MEDS: InsuLIN REG 1unit/0.01ml Soln (100units/ml) SC SCH ×3 (00:26→22:18)
[2025-01-18 03:21] LABS: COVID19 ANTIGEN SOFIA FIA NEGATIVE (NEGATIVE)
[2025-01-18 05:03] LABS: Urine Bacteria None Seen /hpf (None Seen)
[2025-01-18 05:28] LABS: Urine Blood Negative /uL (Negative); Urine Budding Yeast OCCASIONAL /hpf (None Seen); Urine Clarity Clear (Clear); Urine Color Light-Yellow (Yellow); Urine Protein, UAD Negative (Negative); Urine Specific Gravity 1.032 (1.001-1.035); Urine Squamous Epithelial Cell None Seen /hpf (<5); Urine Urobilinogen Normal (Negative); Urine pH 5.5 (5.0-9.0)
[2025-01-18 06:00] LABS: Amphetamine Screen, Urine Neg (NEGATIVE); Barbiturate Scree,Urine Neg (NEGATIVE); Benzodiazephine Screen, Urine Neg (NEGATIVE); Cannabinoid Screen, Urine Neg (NEGATIVE); Cocaine Screen, Urine Neg (NEGATIVE); Opiate Scree,Urine Neg (NEGATIVE); Phencyclidine Screen, Urine Neg (NEGATIVE)
[2025-01-18] MEDS: SODIUM CHLORIDE 0.9% 1,000 ML IV ONE (06:09)
[2025-01-18 06:13] LABS: Rapid Influenza A Negative (Negative); Rapid Influenza B Negative (Negative)
[2025-01-18] MEDS: INSULIN LANTUS (GLARGINE) 1 /0.01ml (100units/ml) SC SCH ×2 (07:13→22:20)
[2025-01-18 07:26] LABS: Basophils # (auto) 0 10 ^3/uL (0-0.2); Basophils % (auto) 0.5 % (0.0-2.0); Eosinophils # (auto) 0.2 10 ^3/uL (0-0.8); Eosinophils % (auto) 2.5 % (0.0-7.0); Hematocrit 39.5 % (41.0-53.0); Hemoglobin 13.3 g/dL (13.5-17.5); Lymphocytes # (auto) 1.9 10 ^3/uL (0.4-5.4); Lymphocytes % (auto) 23.2 % (10.0-50.0); Mean Corpuscular Hemoglobin 29.5 pg (28.0-32.0); Mean Corpuscular Hgb Conc. 33.6 g/dL (32.0-36.0); Mean Corpuscular Volume 87.9 fL (80.0-100.0); Monocytes # (auto) 0.5 10 ^3/uL (0-1.3); Monocytes % (auto) 6.3 % (0.0-12.0); Neutrophils # (auto) 5.5 10 ^3/uL (1.6-8.6); Neutrophils % (auto) 67.5 % (37.0-80.0); Nucleated Red Blood Cells % 0.2 %; Platelet Count (auto) 179 10^3/uL (140-450); Red Blood Cells 4.49 10^6/uL (4.5-5.90); Red Cell Distribution Width 14.7 % (11.8-14.3); White Blood Cell 8.2 10^3/uL (4.4-10.8)
[2025-01-18 07:29] LABS: Alanine Aminotransferase 15 U/L (7-40); Alkaline Phosphatase 79 U/L (46-116); Anion Gap 9 (5-15); BUN/Creatinine Ratio 15.1 (10.0-20.0); Blood Urea Nitrogen 18 mg/dL (9-23); Calcium 9.3 mg/dL (8.7-10.4); Carbon Dioxide 25 mmol/L (20-31); Chloride 106 mmol/L (98-107); Glucose 158 mg/dL (74-106); Potassium 3.5 mmol/L (3.5-5.1); Sodium 140 mmol/L (136-145); Total Protein 6.2 g/dL (5.7-8.2)
[2025-01-18 07:30] LABS: Albumin 3.9 g/dL (3.2-4.8); Aspartate Aminotransferase 12 U/L (13-40); Bilirubin, Total 0.4 mg/dL (0.2-1.0)
[2025-01-18] MEDS ORDERED: DEXTROSE (50%) 50ML SYRG IV PRN (09:30)
--- NOTE | 2025-01-18 11:17 | DVHPNRES ---
Progress Note Date Seen: Jan 18, 2025 Resident Creating Document: MARBIN HI RESIDENT Medical Necessity Reason Pt with a Central, PICC or Fol: No Subjective Review of Systems BLANCA BEAL Is a 69-year-old male with PMH of type 2 DM, CAD, BPH, gout, HTN, depression and CVA presented to the ED with the chief complaints of hyperglycemia. Patient reported yesterday moaning event visit his PCP, and was contacted back on 4:00 p.m. due to abnormal lab results (serum glucose more than 600) which prompted this visit. In ER serum glucose was found more than 400 Patient reports tiredness, generalized body pain, thirstiness and polyuria. Patient denies chest pain, shortness of breath, fever, nausea, vomiting, diarrhea, or any recent sick contact. PMHx: CAD (status post PCI on 01/13/2025) BPH, gout, diabetes, hypertension, depression, and stroke PSHx: Appendectomy, cholecystectomy and PTCA FSHx: Noncontributory Social history: Lives with a friend at home, denies smoking, alcohol and other drug abuse Home medication: A low gluten, glimepiride, Jardiance, aspirin, clopidogrel, metoprolol, gabapentin, allopurinol, bupropion, Allergic history: Chicken, codeine, pantoprazole, penicillin Patient seen and examined at the bedside. Patient reported improvement in his symptoms but still feeling mild fatigue and generalized weakness. added Lantus and continuously monitoring blood glucose. Objective vital signs Vital Sign Date Time Temp Pulse Resp B/P (MAP) Pulse Ox O2 Delivery O2 Flow Rate FiO2 01/18/25 10:43 97.9 82 20 134/78 (96) 96 97.9 01/18/25 08:00 Room Air* 0 21 Total Intake and Output 01/17/25 01/17/25 01/18/25 15:00 23:00 07:00 Output Total 700 ml Balance -700 ml medications Current Medications Medications Dose Ordered Sig/Peter Route Start Time Stop Time Status Last Admin Dose Admin Nitroglycerin 0.4 mg Q5MINP PRN SL 01/17/25 21:00 Clopidogrel Bisulfate 75 mg DAILY PO 01/18/25 10:00 Aspirin 81 mg DAILY PO 01/18/25 10:00 Empaglifozin 10 mg DAILY PO 01/18/25 10:00 Atorvastatin Calcium 80 mg HS PO 01/17/25 22:00 01/17/25 22:55 80 MG Metoprolol Succinate 100 mg DAILY PO 01/18/25 10:00 Sertraline HCl 100 mg DAILY PO 01/18/25 10:00 Tamsulosin HCl 0.4 mg QPM PO 01/18/25 18:00 Enoxaparin Sodium 40 mg DAILY SC 01/18/25 10:00 Pregabalin 75 mg BID PO 01/17/25 22:00 01/17/25 22:55 75 MG Insulin Glargine 20 units HS SC 01/18/25 22:00 Diagnostic Test (Pha) 1 strip ACHS 01/18/25 11:30 Insulin Human Regular HS SC 01/18/25 22:00 Insulin Human Regular AC SC 01/18/25 11:30 Dextrose 50 ml UD PRN IV 01/18/25 09:30 Examination Pt is lying on bed General Appearance: Alert, Oriented X3, Cooperative, Not in acute distress HEENT: Atraumatic, Mucous membranes moist/pink Respiratory: Clear to auscultation, Normal air movement, No added sounds Cardiovascular: Regular rate, Normal S1, Normal S2, No murmurs Abdominal: Active bowel sounds, Soft, no distention, no tenderness Extremities: No edema, Normal pulses, No tenderness/swelling Skin: No Significant rash, except past surgical scars Neuro: Normal speech, sensorimotor deficits none Psych/Mental Status: Mental status NL, Mood NL Nurse was there as sharperone during examination laboratory and microbiology Laboratory Tests 01/18/25 06:23 Test 01/18/25 06:23 Range/Units Serum Glucose 158 #H 74-106 mg/dL Labs and/or images reviewed: Labs reviewed by me, Image(s) reviewed by me Problem List/Assessment/Plan Problem List/Assessment/Plan # Uncontrolled type 2 DM with HbA1c 12.7 with the hyperglycemia without DKA and HHS # ruled out DKA and HHS - continuously monitoring with Accu-Cheks - aggressive sliding scale - Lantus 25 units night - diabetic education - counseling regarding medication compliance - changed to moderate sliding scale if blood glucose less than 200 # NATE likely VMN - continuously monitoring lab - IVF - avoid nephrotoxic agents # Progressive CAD status post PCI - continue home meds including DAPT, lipitor # Hypertension - monitor periodically # Anxiety/depression no signs of suicidal or homicidal ideations - resume home meds # Dyslipidemia - Lipitor # Gout # BPH - resumed home meds Protonix Lovenox Diabetic diet Goals of care discussed with the patient for more than 27 minutes: Full code status Case discussed with Dr. Chowdhury, patient and nurse Plan discussed with: Patient, Daughter My Orders My Orders Orders - MARBIN HI Procedure Category Date Status Time B-Type Natriuretic LAB 01/18/25 In Process Peptide 06:57 Consistent DIET 01/18/25 Transmitted Carb(Ccho)Diabetes Breakfast Insulin Lantus PHA 01/18/25 In Process (Glargine) (Lantus) 22:00 Glucose Blood PHA 01/18/25 In Process (Accu-Chek Comfort 11:30 Insulin R (Human) PHA 01/18/25 In Process (Insulin R) 22:00 Insulin R (Human) PHA 01/18/25 In Process (Insulin R) 11:30 Dextrose 50% Syringe PHA 01/18/25 In Process 09:30 Sertraline Hcl PHA 01/19/25 Transmitted (Zoloft) 10:00 Tamsulosin PHA 01/19/25 Transmitted Hydrochloride (Flomax) 10:00 (Nf) Allopurinol PHA 01/19/25 Transmitted 10:00 MARBIN HI Jan 18, 2025 11:17
[2025-01-18] MEDS: CLOPIDOGREL BISULFATE 75 MG TAB PO SCH (11:28)
[2025-01-18] MEDS: EMPAGLIFLOZIN 10 MG TAB PO SCH (11:28)
[2025-01-18] MEDS: ASPirin 81 mg TAB PO SCH (11:29)
[2025-01-18] MEDS: METOPROLOL SUCCINATE XL 50 MG TAB PO SCH (11:30)
[2025-01-18] MEDS: SERTRALINE HCL 50 MG TAB PO SCH (11:31)
[2025-01-18] MEDS: ENOXAPARIN SOD 40 MG/0.4 ML SYRINGE SC SCH (11:31)
--- NOTE | 2025-01-18 13:08 | ECG ---
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
[2025-01-18] MEDS ORDERED: GLIP10TA9 PO (16:07)
[2025-01-18] MEDS ORDERED: ASPI81CH59 (16:07)
[2025-01-18] MEDS ORDERED: NALO4SPR3 NAS (16:07)
[2025-01-18] MEDS ORDERED: CYCL-611 PO (16:07)
[2025-01-18] MEDS ORDERED: ALOG1TAB2 (16:07)
[2025-01-18] MEDS ORDERED: TAMS0.4C39 PO (16:07)
[2025-01-18] MEDS ORDERED: PREG75CA90 PO (16:07)
[2025-01-18] MEDS ORDERED: BLOO1KIT76 (16:07)
[2025-01-18] MEDS ORDERED: METO1TAB9 (16:07)
[2025-01-18] MEDS ORDERED: [UNRECOGNIZED DRUG - CODE] (16:07)
[2025-01-18] MEDS ORDERED: SERT-160 PO (16:07)
[2025-01-18] MEDS ORDERED: CYCL-614 PO (16:07)
[2025-01-18] MEDS ORDERED: NIFE1TAB31 (16:07)
[2025-01-18] MEDS ORDERED: LANC-634 (16:07)
[2025-01-18] MEDS ORDERED: EMPA1TAB3 PO (16:07)
[2025-01-18] MEDS ORDERED: ATOR40TA52 PO (16:07)
[2025-01-18] MEDS ORDERED: EZET-10 (16:07)
[2025-01-18] MEDS ORDERED: CLOP75TA70 (16:07)
[2025-01-18] MEDS: ONDANSETRON HCL 4 MG/2 ML VIAL IV PRN (17:20)
[2025-01-18] MEDS: TAMSULOSIN HYDROCHLORIDE 0.4 MG CAP PO SCH (18:30)
[2025-01-19 01:00] VITALS: BP 118/72; PULSE 86; RESP 18; TEMP 98.5; O2SAT 93
[2025-01-19 05:00] VITALS: BP 128/82; PULSE 85; RESP 17; TEMP 98.4; O2SAT 91
[2025-01-19 05:36] LABS: Basophils # (auto) 0 10 ^3/uL (0-0.2); Basophils % (auto) 0.2 % (0.0-2.0); Eosinophils # (auto) 0.2 10 ^3/uL (0-0.8); Eosinophils % (auto) 1.9 % (0.0-7.0); Hematocrit 39.5 % (41.0-53.0); Hemoglobin 13.6 g/dL (13.5-17.5); Lymphocytes # (auto) 2.3 10 ^3/uL (0.4-5.4); Lymphocytes % (auto) 26.3 % (10.0-50.0); Mean Corpuscular Hemoglobin 30.5 pg (28.0-32.0); Mean Corpuscular Hgb Conc. 34.4 g/dL (32.0-36.0); Mean Corpuscular Volume 88.6 fL (80.0-100.0); Monocytes # (auto) 0.5 10 ^3/uL (0-1.3); Monocytes % (auto) 5.3 % (0.0-12.0); Neutrophils # (auto) 5.7 10 ^3/uL (1.6-8.6); Neutrophils % (auto) 66.3 % (37.0-80.0); Platelet Count (auto) 177 10^3/uL (140-450); Red Blood Cells 4.46 10^6/uL (4.5-5.90); Red Cell Distribution Width 14.3 % (11.8-14.3); White Blood Cell 8.6 10^3/uL (4.4-10.8)
[2025-01-19 06:01] LABS: Alanine Aminotransferase 15 U/L (7-40); Alkaline Phosphatase 86 U/L (46-116); Anion Gap 8 (5-15); Aspartate Aminotransferase 14 U/L (13-40); BUN/Creatinine Ratio 12.9 (10.0-20.0); Bilirubin, Total 0.4 mg/dL (0.2-1.0); Blood Urea Nitrogen 18 mg/dL (9-23); Calcium 9.7 mg/dL (8.7-10.4); Carbon Dioxide 26 mmol/L (20-31); Chloride 104 mmol/L (98-107); Potassium 3.7 mmol/L (3.5-5.1); Sodium 138 mmol/L (136-145); Total Protein 6.4 g/dL (5.7-8.2); Uric Acid 6.1 mg/dL (3.7-9.2)
[2025-01-19 06:03] LABS: Glucose 242 mg/dL (74-106)
[2025-01-19] MEDS: MORPHINE SULFATE INJ 2 MG/ml SYRG IV PRN (06:34)
[2025-01-19 09:00] VITALS: BP 104/63; PULSE 80; RESP 17; TEMP 98.6; O2SAT 90
[2025-01-19] MEDS ORDERED: SODIUM CHLORIDE 0.9% 1,000 ML IV SCH (09:15)
[2025-01-19] MEDS ORDERED: INSUINJ37 SC (09:48)
[2025-01-19] MEDS ORDERED: ALLOPURINOL 100 MG TAB PO SCH (10:00)
[2025-01-19] MEDS ORDERED: SERTRALINE HCL 50 MG TAB PO SCH (10:00)
[2025-01-19] MEDS ORDERED: ALLOPURINOL 300 MG PO SCH (10:00)
[2025-01-19] MEDS ORDERED: TAMSULOSIN HYDROCHLORIDE 0.4 MG CAP PO SCH (10:00)
--- NOTE | 2025-01-19 11:53 | DVHDSRES ---
Discharge Summary Date of Admission Resident Creating Document: MARBIN HI RESIDENT Jan 17, 2025 at 20:53 Date of Discharge: Jan 19, 2025 Admitting Diagnosis Severe hyperglycemia Labs/Diagnostic Data: Laboratory Results Test 01/19/25 06:19 01/19/25 05:08 01/18/25 06:23 01/18/25 04:50 POC Glucose 245 mg/dl (70-106) White Blood Count 8.6 10^3/uL (4.4-10.8) Red Blood Count 4.46 10^6/uL (4.5-5.90) Hemoglobin 13.6 g/dL (13.5-17.5) Hematocrit 39.5 % (41.0-53.0) Mean Corpuscular Volume 88.6 fL (80.0-100.0) Mean Corpuscular Hemoglobin 30.5 pg (28.0-32.0) Mean Corpuscular Hemoglobin Concent 34.4 g/dL (32.0-36.0) Red Cell Distribution Width 14.3 % (11.8-14.3) Platelet Count 177 10^3/uL (140-450) Mean Platelet Volume 7.5 fL (6.9-10.8) Neutrophils (%) (Auto) 66.3 % (37.0-80.0) Lymphocytes (%) (Auto) 26.3 % (10.0-50.0) Monocytes (%) (Auto) 5.3 % (0.0-12.0) Eosinophils (%) (Auto) 1.9 % (0.0-7.0) Basophils (%) (Auto) 0.2 % (0.0-2.0) Neutrophils # (Auto) 5.7 10 ^3/uL (1.6-8.6) Lymphocytes # (Auto) 2.3 10 ^3/uL (0.4-5.4) Monocytes # (Auto) 0.5 10 ^3/uL (0-1.3) Eosinophils # (Auto) 0.2 10 ^3/uL (0-0.8) Basophils # (Auto) 0 10 ^3/uL (0-0.2) Nucleated Red Blood Cells 0.0 % Sodium Level 138 mmol/L (136-145) Potassium Level 3.7 mmol/L (3.5-5.1) Chloride Level 104 mmol/L (98-107) Carbon Dioxide Level 26 mmol/L (20-31) Anion Gap 8 (5-15) Blood Urea Nitrogen 18 mg/dL (9-23) Creatinine 1.39 mg/dL (0.700-1.30) Glomerular Filtration Rate Calc 56 mL/min (>90) BUN/Creatinine Ratio 12.9 (10.0-20.0) Serum Glucose 242 mg/dL (74-106) Uric Acid 6.1 mg/dL (3.7-9.2) Calcium Level 9.7 mg/dL (8.7-10.4) Total Bilirubin 0.4 mg/dL (0.2-1.0) Aspartate Amino Transferase (AST) 14 U/L (13-40) Alanine Aminotransferase (ALT) 15 U/L (7-40) Alkaline Phosphatase 86 U/L (46-116) Total Protein 6.4 g/dL (5.7-8.2) Albumin 4.0 g/dL (3.2-4.8) Troponin I High Sensitivity 20 ng/L (</=54) B-Type Natriuretic Peptide 23.44 pg/mL (0-100) Vitamin B12 Level 592 pg/mL (211-911) Vitamin D 25-Hydroxy 28.5 ng/mL (30.0-100) Hepatitis C Antibody Negative (Negative) Urine Color Light-yellow (Yellow) Urine Clarity Clear (Clear) Urine pH 5.5 (5.0-9.0) Urine Specific [place] 1.032 (1.001-1.035) Urine Protein Negative (Negative) Urine Ketones Negative (Negative) Urine Blood Negative /uL (Negative) Urine Nitrite Negative (Negative) Urine Bilirubin Negative (Negative) Urine Urobilinogen Normal mg/dL (Negative) Urine Leukocyte Esterase Negative /uL (Negative) Urine RBC <1 /hpf (0 - 3) Urine Microscopic WBC /HPF (0-3) Urine Squamous Epithelial Cells None seen /hpf (<5) Urine Bacteria None seen /hpf (None Seen) Urine Yeast (Budding) Occasional /hpf (None Urine Glucose 4+ mg/dL (Normal) Urine Opiates Screen Neg (NEGATIVE) Urine Fentanyl Screen Neg (NEGATIVE) Urine Barbiturates Screen Neg (NEGATIVE) Urine Phencyclidine Screen Neg (NEGATIVE) Urine Amphetamines Screen Neg (NEGATIVE) Urine Benzodiazepines Screen Neg (NEGATIVE) Urine Cocaine Screen Neg (NEGATIVE) Urine Cannabinoids Screen Neg (NEGATIVE) Test 01/18/25 01:59 01/18/25 01:58 01/17/25 19:57 01/17/25 17:59 SARS-CoV-2 Antigen (Rapid) Negative (NEGATIVE) Influenza Type A Antigen Negative (Negative) Influenza Type B Antigen Negative (Negative) Lactic Acid Level 1.6 mmol/L (0.4-2.0) Prothrombin Time 10.3 sec (9.3-11.8) Prothrombin Time INR 0.97 (0.9-1.15) Activated Partial Thromboplast Time 25.0 SEC (24.5-34.5) Hemoglobin A1c 12.5 % A1C (<5.7) Serum Osmolality 302 mOsm/kg (278-298) Phosphorus Level 3.6 mg/dL (2.4-5.1) Magnesium Level 2.3 mg/dL (1.6-2.6) Direct Bilirubin 0.1 mg/dL (<0.3) Beta-Hydroxybutyric Acid 0.191 mmol/L (< 0.4) Thyroid Stimulating Hormone (TSH) 3.48 uIU/mL (0.55-4.78) Other Laboratory Tests 01/19/25 05:08 Brief Hx & Hospital Course: BLANCA BEAL Is a 69-year-old male with PMH of type 2 DM, CAD, BPH, gout, HTN, depression and CVA presented to the ED with the chief complaints of hyperglycemia. Patient reported yesterday moaning event visit his PCP, and was contacted back on 4:00 p.m. due to abnormal lab results (serum glucose more than 600) which prompted this visit. In ER serum glucose was found more than 400 Patient reports tiredness, generalized body pain, thirstiness and polyuria. Patient denies chest pain, shortness of breath, fever, nausea, vomiting, diarrhea, or any recent sick contact. Patient was diagnosed with severe hyperglycemia due to uncontrolled type 2 DM without HHS and DKA. Ordered a serum osmolality and her for serum ketones which were within normal range. Patient was started on Lantus 25 units and continuously monitor glucose with Accu-Cheks and moderate to severe insulin sliding scale. Patient was counseled regarding medication compliance and adherence. Patient was given IVF due to NATE and continuously monitored lab. Patient condition was improved, hemodynamically stable and in condition to be discharged home with Lantus along with home medications. Discharge plan discussed with the patient and agreed to the plan. Patient was advised about 2 follow up with PCP for medication management. Patient was advised about healthy lifestyle modifications including diet and exercise. Pt is lying on bed General Appearance: Alert, Oriented X3, Cooperative, Not in acute distress HEENT: Atraumatic, Mucous membranes moist/pink Respiratory: Clear to auscultation, Normal air movement, No added sounds Cardiovascular: Regular rate, Normal S1, Normal S2, No murmurs Abdominal: Active bowel sounds, Soft, no distention, no tenderness Extremities: No edema, Normal pulses, No tenderness/swelling Skin: No Significant rash, except past surgical scars Neuro: Normal speech, sensorimotor deficits none Psych/Mental Status: Mental status NL, Mood NL Nurse was there as sharperone during examination Condition at Discharge: Stable Final Diagnosis/Problems List # Uncontrolled type 2 DM with HbA1c 12.7 with the hyperglycemia without DKA and HHS # ruled out DKA and HHS # Metabolic syndrome # NATE likely VMN # Progressive CAD status post PCI # Hypertension # Anxiety/depression no signs of suicidal or homicidal ideations # Dyslipidemia # Gout # BPH # Right Sciatica Discharge Disposition: Home Discharge Instruct/Medications Diet: Consistent carbohydrate Activity: No Restrictions, As Tolerated Follow Up/Referral: F/u with PCP and discuss about insulin Medications: Insulin Lantus 25 units night daily Resume home meds Discharge Statement: "Patient was advised to return to the ER or call 911 if any headaches, dizziness, shortness of breath, chest pain, abdominal pain, bleeding, fevers, or worsening of medical condition. Patient was counseled about treatment plan, medications, possible side effects, patientverbalized understanding. All questions were answered to the best of my ability. This discharge took greater then 30 minutes in planning, reviewing documentation, counseling the patient, and discussing with other team members." ASSESSMENT ASSESSMENT Assessment # Uncontrolled type 2 DM with HbA1c 12.7 with the hyperglycemia without DKA and HHS MARBIN HI RESIDENT Jan 19, 2025 11:53
== END 2025-01-19 13:16 | disposition home or self-care (01) | DRG 637 ==
LOC: ER 17:43 → OVERFLOW 20:53 → EAST 01-18 10:35
PROVIDERS: ADMIT Student in an Organized Health Care Education/Training Program; ATTEND Student in an Organized Health Care Education/Training Program
DX: E11.65 Type 2 diabetes mellitus with hyperglycemia (principal); N17.0 Acute kidney failure with tubular necrosis; E78.5 Hyperlipidemia, unspecified; N40.0 Benign prostatic hyperplasia without lower urinary tract symptoms; M10.9 Gout, unspecified; Z20.822 Contact with and (suspected) exposure to COVID-19; I25.10 Atherosclerotic heart disease of native coronary artery without angina pectoris; M54.31 Sciatica, right side; E86.0 Dehydration; I10 Essential (primary) hypertension; F32.A Depression, unspecified; F41.9 Anxiety disorder, unspecified; E88.810 Metabolic syndrome; Z98.61 Coronary angioplasty status; Z88.0 Allergy status to penicillin; Z88.4 Allergy status to anesthetic agent; Z79.82 Long term (current) use of aspirin; Z79.84 Long term (current) use of oral hypoglycemic drugs; Z90.49 Acquired absence of other specified parts of digestive tract; Z86.73 Personal history of transient ischemic attack (TIA), and cerebral infarction without residual deficits; Z79.899 Other long term (current) drug therapy
CPT/HCPCS: 36415; 71045; 80048; 80053; 80076; 80307; 81001; 82010; 82306; 82607; 82962; 83036; 83605; 83735; 83880; 83930; 84100; 84443; 84484; 84550; 85025; 85610; 85730; 86803; 86850; 86900; 86901; 87040; 87081; 87426; 87804; 93005; 96360; 96361; G0378; J1815; J2405